=== PATIENT | male | born 1955 | race Caucasian/White ===

== ENCOUNTER 2019-04-17 08:06 | Outpatient (CLI) | payer MEDICARE, BC ==
--- NOTE | 2019-04-17 11:32 | CT ---
CT LUMBAR SPINE NONCONTRAST: DATE: 04/17/2019 HISTORY: 64-year-old male with "M54.16 lumbar radicular pain." Low back pain. FINDINGS: [employer] radiograph demonstrates dorsal column stimulator generator posterior to the left sacral ala wit h leads entering the thoracic spine, the distal tips at the midthoracic spine. This spinal cord stimulator is almost entirely outside of the field of view of the CT images. (Please note that on CT, the degree of central and neural foraminal stenosis usually appears worse than on MRI). There are 5 lumbar-type vertebrae. Vertebral body heights are maintained. T12-L1: Essentially normal. L1-2: Disc space maintained. Mild bilateral facet DJD. No high-grade central or high-grade neural for aminal stenosis. L to 3: Somewhat severe disc space narrowing with vacuum disc phenomenon. Prominent anterior endplate sclerosis. Circumferential endplate marginal osteophytosis. Degenerative retrolisthesis of L2 on L3 plus broad-based disc-osteophytic bar complex, encroaching upon anterior aspect of spinal canal. M ild to moderate central spinal canal stenosis. Mild to moderate bilateral neural foraminal stenosis. Midline laminectomy defect. L3-4: Somewhat severe disc space narrowing. Endplate irregularity. Degenerative retrolisthesis of L3 on L4, and broad-based disc-osteophytic bar complex, encroaches upon anterior aspect of spinal canal. Midline laminectomy defect. Mild to moderate central spinal canal stenosis. Severe right neura l foraminal stenosis. Moderate left neural foraminal stenosis. L4-5: Right hemilaminectomy defect. Ligamentum flavum thickening. Mild to moderate central spinal can al stenosis. Moderate to severe disc space narrowing. Broad-based disc-osteophytic bar complex encroaches upon anterior aspect of spinal canal. Moderate disc space narrowing. Moderate left neural foraminal stenosis. Moderate to severe right neural foraminal stenosis. Bilateral moderate facet DJD. L5-S1: Mild disc space narrowing. Prominent irregular diffuse disc bulge versus small to moderate-siz ed central and bilateral paracentral broad-based disc herniation. Moderate central spinal canal stenosis. Moderate bilateral facet DJD. Severe bilateral neural foraminal stenosis. Lateral recess st enosis bilaterally. IMPRESSION: 1. High-grade lumbar spondylosis consisting of multilevel high-grade degenerative disc disease and fa cet osteoarthrosis. 2. Status post midline laminectomies at L2-3 and L3-4, and right hemilaminotomy at L4-5. 3. Multilevel high-grade neural foraminal stenosis.
== END 2019-04-17 08:07 | disposition home or self-care (01) ==
LOC: BICCT 08:06
PROVIDERS: ATTEND Specialist
DX: M51.16 Intervertebral disc disorders with radiculopathy, lumbar region (principal); M47.26 Other spondylosis with radiculopathy, lumbar region; M48.061 Spinal stenosis, lumbar region without neurogenic claudication; Z98.890 Other specified postprocedural states
CPT/HCPCS: 72131

== ENCOUNTER 2019-07-20 07:29 | Outpatient (CLI) | payer MEDICARE, BC ==
--- NOTE | 2019-07-21 11:07 | EKG ---
Test Reason : Blood Pressure : / mmHG Vent. Rate : 057 BPM Atrial Rate : 057 BPM P-R Int : 164 ms QRS Dur : 088 ms QT Int : 424 ms P-R-T Axes : -03 024 031 degrees QTc Int : 412 ms Sinus bradycardia Otherwise normal ECG When compared with ECG of 15-MAY-2013 15:05, No significant change was found Confirmed by DR. Gabo WALKER ([id number]) on 07/21/2019 11:07:12 AM Referred By: JULIAN Confirmed By:DR. Gabo WALKER
== END 2019-07-20 07:30 | disposition home or self-care (01) ==
LOC: LABBT 07:29
PROVIDERS: ATTEND Neurological Surgery
DX: Z01.818 Encounter for other preprocedural examination (principal); M54.16 Radiculopathy, lumbar region
CPT/HCPCS: 93005; 93010

== ENCOUNTER 2019-07-22 06:40 | Day surgery (SDC) | payer MEDICARE, BC ==
[2019-07-20 10:07] VITALS: BMI 39.4
--- NOTE | 2019-07-21 13:18 | HP ---
HISTORY OF PRESENT ILLNESS: Mr. Amato is known to our practice for stimulator revision, who returns today for evaluation of a similar back and left lower extremity pain that he has had for years, which has recently become more refractory to his typical forms of treatment. He continues to see Dr. Funes who manages his pain. However, he has recently received an epidural steroid injection which he felt improved this pain drastically, which is the 1st for him. His pains are worsened when he is nonmedicated and is walking. This stimulator and medication combination as well as this recent epidural steroid injection have helped his pain, albeit transiently. CT from [facility] reveals severe foraminal stenosis to the left at L5 secondary to bone spurring and some disk in the foramen could explain his pain as well. PHYSICAL EXAMINATION: The patient is alert and oriented x3. Gait is antalgic and slow. Lower extremity motor exam is normal. Cranial nerve function is normal. He does have normal straight leg raise and femoral stretch bilaterally. PAST MEDICAL HISTORY: Significant for hypercholesterolemia, hypertension. PAST SURGICAL HISTORY: Dorsal column stimulator placement, revision and lumbar decompression. CURRENT MEDICATIONS: Atorvastatin, propanol, doxepin, esomeprazole, zolpidem, magnesium, aspirin, Tylenol . ALLERGIES: NO KNOWN DRUG ALLERGIES. ASSESSMENT: Lumbar radiculopathy. PLAN: Dr. Funk met with the patient, reviewed imaging, advocated for a left L5 decompression and foraminotomy. He explained to the patient the risks, benefits, and alternatives to the procedure. The patient expressed understanding and elected to move forward with surgery as discussed. I do believe the patient is mentally competent and capable of making medical decisions for himself. We will move forward with surgery as planned. Job ID: [id number]
[2019-07-22] MEDS ORDERED: Thrombin 5000 UNITS/5 ML VIAL ONE (06:50)
[2019-07-22] MEDS ORDERED: EPINEPHrine 1 MG/ML AMP ONE (06:50)
[2019-07-22] MEDS ORDERED: Bupivacaine PF 0.5% 30 ML VIAL ONE (06:50)
[2019-07-22] MEDS ORDERED: Fentanyl 250 MCG/5 ML VIAL ONE (08:06)
[2019-07-22] MEDS ORDERED: Ondansetron PF 4 MG/2 ML Vial ONE (09:10)
[2019-07-22] MEDS ORDERED: PROPOFOL 200 MG/20 ML VIAL ONE (09:10)
[2019-07-22] MEDS ORDERED: Rocuronium Bromide 10 MG/ML (10ML VIAL) ONE (09:10)
[2019-07-22] MEDS ORDERED: Glycopyrrolate 0.2 MG/ML 5 ML SYRINGE ONE (09:10)
[2019-07-22] MEDS ORDERED: Dexamethasone 20 MG/5 ML VIAL ONE (09:10)
[2019-07-22] MEDS ORDERED: Ketorolac Tromethamine 30 MG/ML VIAL ONE (09:10)
--- NOTE | 2019-07-22 09:20 | OP ---
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 DIAGNOSIS: Left L5 radiculopathy. PROCEDURE PERFORMED: Reoperation of left L5 foraminotomy and decompression. ANESTHESIA: General. DESCRIPTION OF PROCEDURE: The patient was brought into the operating room and placed under general anesthesia. He was flipped from the supine to prone position on the operating room table. A linear incision was planned at the site of a much longer prior incision. After prepping and draping and after an appropriate preoperative pause, the incision was created. The soft tissues were swept away from midline. The patient was exceptionally deep requiring extra operative time and difficulty with retraction and there was reoperation, therefore a surgical modifier 22 will be applied. After placing a retractor and obtaining a C-arm image to confirm the appropriate location, 1, 2, and 3 mm Kerrisons were used to perform hemilaminectomy along the inferior aspect of L5 in order to gain access to the foramen. The lateral recess at L5 as well as proximal foraminotomy were performed. At the completion of the procedure, the wound was irrigated. Hemostasis was maintained throughout. The wound was then closed in anatomic layers and a pressure dressing was applied. There were no known procedural complications. Job ID: [id number]
[2019-07-22] MEDS ORDERED: Tamsulosin HCl 0.4 MG CAP ONE (09:51)
== END 2019-07-22 14:45 | disposition home or self-care (01) ==
LOC: SDC 06:40
PROVIDERS: ATTEND Neurological Surgery
PROC: 01NB0ZZ Release Lumbar Nerve, Open Approach (ICD-10-PCS; principal; 2019-07-22)
DX: M48.061 Spinal stenosis, lumbar region without neurogenic claudication (principal); M54.16 Radiculopathy, lumbar region; E78.5 Hyperlipidemia, unspecified; I10 Essential (primary) hypertension; K21.9 Gastro-esophageal reflux disease without esophagitis; M19.90 Unspecified osteoarthritis, unspecified site; G47.33 Obstructive sleep apnea (adult) (pediatric); E78.00 Pure hypercholesterolemia, unspecified; Z79.82 Long term (current) use of aspirin; Z79.899 Other long term (current) drug therapy; Z96.82 Presence of neurostimulator
CPT/HCPCS: 76000; J0171; J0690; J1100; J1885; J2405; J2704; J3010; S0020

== ENCOUNTER 2020-11-02 07:12 | Outpatient (CLI) | payer MEDICARE, BC ==
[2020-11-02 10:25] VITALS: BP 167/89; TEMP 97.3
[2020-11-02] MEDS ORDERED: Iopamidol-M 200 41% 20 ML VIAL ONE (12:38)
== END 2020-11-02 09:55 | disposition home or self-care (01) ==
LOC: CT 07:12
PROVIDERS: ATTEND Nurse Practitioner Family
DX: M48.061 Spinal stenosis, lumbar region without neurogenic claudication (principal); M47.816 Spondylosis without myelopathy or radiculopathy, lumbar region; M47.817 Spondylosis without myelopathy or radiculopathy, lumbosacral region; M48.07 Spinal stenosis, lumbosacral region; M47.815 Spondylosis without myelopathy or radiculopathy, thoracolumbar region; Z98.890 Other specified postprocedural states
CPT/HCPCS: 62304; 72132; Q9966

== ENCOUNTER 2020-12-02 09:54 | Outpatient (CLI) | payer MEDICARE, BC ==
[2020-12-02 17:56] LABS: SARS-CoV-2 PCR by NAA Not Detected (NotDetected)
== END 2020-12-02 09:55 | disposition home or self-care (01) ==
LOC: LABBT 09:54
PROVIDERS: ATTEND Neurological Surgery
DX: Z01.812 Encounter for preprocedural laboratory examination (principal); M54.16 Radiculopathy, lumbar region; Z20.822 Contact with and (suspected) exposure to COVID-19
CPT/HCPCS: U0003; U0005; 87635

== ENCOUNTER 2020-12-07 08:31 | Day surgery (SDC) | payer MEDICARE, BC ==
[2020-12-06 11:54] VITALS: BMI 40.1
[2020-12-07] MEDS ORDERED: Bupivacaine PF 0.5% 30 ML VIAL ONE (09:04)
[2020-12-07] MEDS ORDERED: Thrombin 5000 UNITS/5 ML VIAL ONE (09:04)
[2020-12-07] MEDS ORDERED: EPINEPHrine 1 MG/ML AMP ONE (09:04)
[2020-12-07] MEDS ORDERED: Fentanyl 250 MCG/5 ML VIAL ONE (09:12)
[2020-12-07] MEDS ORDERED: Ketorolac Tromethamine 30 MG/ML VIAL ONE (09:32)
[2020-12-07] MEDS ORDERED: PROPOFOL 200 MG/20 ML VIAL ONE (09:32)
[2020-12-07] MEDS ORDERED: Rocuronium Bromide 10 MG/ML (10ML VIAL) ONE (09:32)
[2020-12-07] MEDS ORDERED: Dexamethasone 20 MG/5 ML VIAL ONE (09:32)
[2020-12-07] MEDS ORDERED: Glycopyrrolate 0.2 MG/ML 5 ML SYRINGE ONE (09:32)
[2020-12-07] MEDS ORDERED: Lidocaine 1% PF 5 ML VIAL ONE (09:32)
[2020-12-07] MEDS ORDERED: Ondansetron PF 4 MG/2 ML Vial ONE (09:32)
[2020-12-07] MEDS ORDERED: Tamsulosin HCl 0.4 MG CAP ONE (11:33)
== END 2020-12-07 14:00 | disposition home or self-care (01) ==
LOC: SDC 08:31
PROVIDERS: ATTEND Neurological Surgery
PROC: 01NB0ZZ Release Lumbar Nerve, Open Approach (ICD-10-PCS; principal; 2020-12-07)
DX: M48.061 Spinal stenosis, lumbar region without neurogenic claudication (principal); M54.16 Radiculopathy, lumbar region; G47.33 Obstructive sleep apnea (adult) (pediatric); E78.5 Hyperlipidemia, unspecified; I10 Essential (primary) hypertension; K21.9 Gastro-esophageal reflux disease without esophagitis; M19.90 Unspecified osteoarthritis, unspecified site; E78.00 Pure hypercholesterolemia, unspecified; Z79.82 Long term (current) use of aspirin; Z79.899 Other long term (current) drug therapy; Z98.1 Arthrodesis status
CPT/HCPCS: 76000; J0171; J0690; J1100; J1885; J2405; J2704; J3010; S0020

== ENCOUNTER 2021-03-24 07:16 | Day surgery (SDC) | payer MEDICARE, BC ==
[2021-03-22 15:11] VITALS: BMI 39.4
[2021-03-24 08:10] VITALS: BP 173/86; TEMP 98.2
== END 2021-03-24 10:45 | disposition home or self-care (01) ==
LOC: RAD 07:16
PROVIDERS: ATTEND Specialist
DX: M47.26 Other spondylosis with radiculopathy, lumbar region (principal); M48.061 Spinal stenosis, lumbar region without neurogenic claudication; M51.16 Intervertebral disc disorders with radiculopathy, lumbar region; Z98.890 Other specified postprocedural states
CPT/HCPCS: 62304; 71045; 72100; 72132

== ENCOUNTER 2022-10-01 07:31 | Day surgery (SDC) | payer MEDICARE, BC ==
[2022-10-01 08:18] VITALS: BP 160/78; TEMP 98.5
[2022-10-01] MEDS ORDERED: Iopamidol-M 200 41% 20 ML VIAL ONE (13:35)
== END 2022-10-01 09:46 | disposition home or self-care (01) ==
LOC: RAD 07:31
PROVIDERS: ATTEND Specialist
PROC: B01B1ZZ Fluoroscopy of Spinal Cord using Low Osmolar Contrast (ICD-10-PCS; principal; 2022-10-01)
DX: M54.16 Radiculopathy, lumbar region (principal); M48.061 Spinal stenosis, lumbar region without neurogenic claudication; M48.07 Spinal stenosis, lumbosacral region; M25.78 Osteophyte, vertebrae; Z98.1 Arthrodesis status; Z79.85 Long-term (current) use of injectable non-insulin antidiabetic drugs; Z79.890 Hormone replacement therapy; Z79.899 Other long term (current) drug therapy
CPT/HCPCS: 62304; 72132